=== PATIENT | male | born 1960 | race Hispanic/Latino ===

== ENCOUNTER 2018-08-26 15:18 | Emergency (ER) | payer MEDICARE, OTHER ==
[2018-08-26] MEDS ORDERED: Lidocaine 1% (PF) 30 ML VIAL ONE (15:38)
--- NOTE | 2018-08-26 15:58 | RAD ---
EXAM: Left thumb radiographs 3 views PROVIDED CLINICAL HISTORY: Thumb pain status post injury COMPARISON: None FINDINGS: Comminuted, displaced terminal tuft fracture of the thumb distal phalanx. IMPRESSION: As above.
[2018-08-26] MEDS ORDERED: Acetaminophen 500 MG TAB ONE (16:33)
[2018-08-26] MEDS ORDERED: CEFAZOLIN 1 GM VIAL ONE (17:30)
[2018-08-26] MEDS ORDERED: Morphine 4 MG/ML VIAL ONE (17:32)
[2018-08-26] MEDS ORDERED: Adacel (T-DAP) 0.5 ML SYRINGE ONE (17:32)
== END 2018-08-26 18:47 | disposition short-term general hospital (02) ==
LOC: ERS 15:18
DX: S68.022A Partial traumatic metacarpophalangeal amputation of left thumb, initial encounter (principal); E11.9 Type 2 diabetes mellitus without complications; Z79.84 Long term (current) use of oral hypoglycemic drugs; W29.8XXA Contact with other powered hand tools and household machinery, initial encounter
CPT/HCPCS: 90471; 90715; 96361; 96374; J0690; J2001; J2270